=== PATIENT | female | born 1990 | race Caucasian/White ===

== ENCOUNTER 2017-02-26 05:55 | Emergency (ER) | payer BC ==
[2017-02-26 06:22] VITALS: BMI 25.7
[2017-02-26 06:33] LABS: URINE APPEARANCE SLCLOUDY; URINE BILIRUBIN NEGATIVE (NEGATIVE); URINE BLOOD NEGATIVE (NEGATIVE); URINE COLOR YELLOW; URINE GLUCOSE (UA) NEGATIVE (NEGATIVE); URINE KETONE NEGATIVE (NEGATIVE); URINE NITRITE NEGATIVE (NEGATIVE); URINE PROTEIN NEGATIVE (NEGATIVE); URINE UROBILINOGEN NEGATIVE E.U./dl (0.2-1.0)
[2017-02-26 06:48] LABS: URINE LEUK ESTERASE 1+ (NEGATIVE)
[2017-02-26 06:50] LABS: URINE HYALINE CAST 2 /lpf; URINE MUCUS FEW; URINE RBC 1 /hpf (0-3); URINE WBC 3 /hpf (3-5)
--- NOTE | 2017-02-26 07:19 | PDOC ---
History of Present Illness - General Chief Complaint: Pain Stated Complaint: ABDOMINAL PAIN Time Seen by Provider: 02/26/17 07:07 History Source: Patient Exam Limitations: Language Barrier, Physical Impairment - History of Present Illness Travel History: No Initial Comments: 02/26/17 07:19 27 yo F A1 presents @ 18w gestation with 3 day history of lower abdominal pain. She describes constant 8/10 pressure -like lower abdominal pain that radiates to bilateral lower quadrants. No alleviating or aggravating factors. She states she has taken Tylenol with minimal relief. She mentions has not had a bowel movement for 4 days. She has appointment to see Dr. Gale OB on . but pain prompted trip to ED. Denies fever, chills, CP, GRAY, SOB, palpitations, N/V. Timing/Duration: reports: constant Quality: reports: moderate Abdominal Pain Onset Location: reports: generalized abdomen Pain Radiation: reports: RLQ, LLQ Activities at Onset: reports: none Treatment Prior to Arrive: improves with: analgesics Aggravating Factors: improves with: None Alleviating Factors: improves with: None Past History - Travel Traveled outside of the country in the last 30 days: No Close contact w/someone who was outside of country & ill: No - Past Medical History Allergies/Adverse Reactions: Allergies Allergy/AdvReac Type Severity Reaction Status Date / Time No Known Allergies Allergy Verified 02/26/17 06:23 Home Medications: Ambulatory Orders Clotrimazole [Clotrimazole-7] 45 gm VG DAILY #1 cream.appl 02/26/17 Pnv73/Iron,Gluc/Folic/Dss/Dha [Citranatal Assure Combo Pack] 1 each PO DAILY Other medical history: Pt denies - Reproductive History Is Patient Now?: Yes (18 wks) (#): 1 - Psycho/Social/Smoking Cessation Hx Suicidal Ideation: No Smoking History: Never smoked Have you smoked in the past 12 months: No Information on smoking cessation initiated: No Hx Alcohol Use: No Drug/Substance Use Hx: No Substance Use Type: None Review of Systems - Review of Systems Able to Perform ROS?: Yes Is the patient limited Green[place]ic proficient: No ABD/GI: Yes: Constipated, Vomiting : Yes: Frequency All Other Systems: Reviewed and Negative *Physical Exam - Vital Signs Last Vital Signs Temp Pulse Resp BP Pulse Ox 97.9 F 106 H 20 111/58 100 02/26/17 06:19 02/26/17 06:19 02/26/17 06:19 02/26/17 06:19 02/26/17 06:19 - Physical Exam General Appearance: Yes: Moderate Distress HEENT: positive: EOMI, GUILLE Neck: positive: Supple Respiratory/Chest: positive: Lungs Clear, Normal Breath Sounds. negative: Respiratory Distress, Accessory Muscle Use Cardiovascular: positive: Regular Rhythm, Regular Rate, S1, S2. negative: Edema , JVD, Murmur Female Pelvic Exam: positive: uterus (gravid). negative: discharge, vaginal bleeding Gastrointestinal/Abdominal: positive: Normal Bowel Sounds, Tender, Soft. negative: Guarding, Rebound Musculoskeletal: positive: Normal Inspection, CVA Tenderness Extremity: positive: Normal Capillary Refill, Normal Inspection, Normal Range of Motion Integumentary: positive: Normal Color, Dry, Warm. negative: Cyanotic, Erythema Neurologic: positive: line manager II-XII NML intact, Fully Oriented, Alert, Normal Mood/ Affect, Normal Response, Motor Strength / ED Treatment Course - LABORATORY CBC & Chemistry Diagram: 02/26/17 07:07 02/26/17 07:07 - ADDITIONAL ORDERS Additional order review: Laboratory Results 02/26/17 06:25 Urine Color Yellow Urine Appearance Slcloudy Urine pH 5.0 Ur Specific Abbott 1.026 Urine Protein Negative Urine Glucose (UA) Negative Urine Ketones Negative Urine Blood Negative Urine Nitrite Negative Urine Bilirubin Negative Urine Urobilinogen Negative Ur Leukocyte Esterase 1+ H Urine RBC 1 Urine WBC 3 Ur Epithelial Cells Moderate Hyaline Casts 2 Urine Mucus Few - RADIOLOGY Radiograph Interpretation: 02/26/17 09:24 EXAM#: TYPE/EXAM: RESULT: [id number] US/ LIMITED US HISTORY PROVIDED: evaluation. Real time examination of the pelvis demonstrates the following: There is a single live intrauterine with measurements corresponding to a gestational age of 18 weeks 6 days. A heart rate of 142 BPM was calculated. There is an anterior uterine mass consistent with a leiomyoma. This fibroid measures 5.6 x 5.3 x 3.8 cm. The placenta is posterior in location. An adequate amount of amniotic fluid is identified. The fetus is in a breech presentation at the present time. A cervical length of 3.8 cm was also measured. IMPRESSION: Single live intrauterine gestation of 18 weeks 6 days gestational age. Reported By: Power Babin MD 02/26/17 0908 Medical Decision Making - Medical Decision Making 02/26/17 07:52 A:27 yo F A1 presents @ 18w gestation with 3 day history of lower abdominal pain. P: * Will send to Quantitative BHcg, CBC, CMP, and UA. * Transabdominal US ordered. * Pelvic exam WNL 02/26/17 09:24 * Quantitative BHCG and US confirm IUP @ 18W6D. * CBC-shows Leukocytosis 02/26/17 11:57 * Contacted Dr Gale office. She was not available today and has no coverage. * Given patients pain well controlled and stable condition will discharge home with quick follow up in 2-3days * Given Clotrimazole cream for yeast infection and told to take tylenol for pain. *DC/Admit/Observation/Transfer Diagnosis at time of Disposition: Yeast infection - Discharge Dispostion Disposition: HOME Admit: No - Referrals Referrals: Kris Tinajero MD [Primary Care Provider] - Sara Gale MD [Staff Physician] - - Patient Instructions Printed Discharge Instructions: DI for Vaginal Yeast Infection Additional Instructions: Please follow up with OBGYN Dr. Gale. Take you medication for yeast infection as directed. Take Tylenol for pain. Regular diet. Increase activity as tolerated. If pain worsens or you develop fever/nausea/vomiting please return to ER. Print Language: [place] - Post Discharge Activity Work/School Note: Back to Work
--- NOTE | 2017-02-26 07:36 | PDOC ---
Attending Attestation - Resident Resident Name: Perez Sousa - ED Attending Attestation I have performed the following: I have examined & evaluated the patient, The case was reviewed & discussed with the resident, I agree w/resident's findings & plan, Exceptions are as noted - HPI HPI: 27 yo F history deafness currently 18 WGA with an uncomplicated presents with pelvic pain x3 days. She has not taken anything for pain. Pain is currently 9/10. She denies nausea, vomiting, vaginal discharge, bleeding, dysuria. She has had increased urinary frequency. She has had recent constipation for past few days. She is taking vitamins as prescribed. - Physicial Exam PE: GENERAL: Awake, alert, and fully oriented. No distress, but appears uncomfortable. HEAD: No signs of trauma EYES: PERRLA, EOMI, sclera anicteric, conjunctiva clear ENT: Auricles normal inspection, hearing grossly normal, nares patent, oropharynx clear without exudates. Moist mucosa NECK: Normal ROM, supple, no lymphadenopathy, JVD, or masses LUNGS: Breath sounds equal, clear to auscultation bilaterally. No wheezes, and no crackles HEART: Regular rate and rhythm, normal S1 and S2, no murmurs, rubs or gallops ABDOMEN: Soft, +suprapubic tenderness, normoactive bowel sounds. No guarding, no rebound. No masses EXTREMITIES: Normal range of motion, no edema. No clubbing or cyanosis. No cords, erythema, or tenderness NEUROLOGICAL: Cranial nerves II through XII grossly intact. Normal speech, normal gait SKIN: Warm, Dry, normal turgor, no rashes or lesions noted. : No external lesions. +Erythema and white discharge in the vault. No CMT, no adnexal tenderness. - Medical Decision Making Patient 18 WGA with pelvic pain. DDx includes UTI, round ligament pain, threatened miscarriage, yeast infection. Will give ofirmev for pain, obtain sono and UA.
[2017-02-26] MEDS ORDERED: ACETAMINOPHEN 1000 MG/100 ML VIAL (NON FORMULARY) IVPB ONE (07:44)
[2017-02-26 08:12] LABS: BASOPHIL 0.3 % (0-2.0); EOSINOPHIL 0.9 % (0-4.5); MCH 26.9 pg (25.7-33.7); MCHC 33.6 g/dl (32.0-36.0); MEAN PLT VOLUME 9.6 fl (7.5-11.1); NEUTROPHILS 84.2 % (42.8-82.8); PLATELET COUNT 192 K/MM3 (134-434); RDW 14.3 % (11.6-15.6); WHITE BLOOD COUNT 16.4 K/mm3 (4.0-10.0)
[2017-02-26] MEDS ORDERED: ACETAMINOPHEN INJECTION 100 ML IVPB ONE (08:12)
[2017-02-26 08:43] LABS: ALBUMIN 2.9 g/dl (3.4-5.0); ALK PHOS 86 U/L (45-117); ANION GAP 11 (8-16); BILIRUBIN,TOTAL 0.2 mg/dL (0.2-1.0); CALCIUM 9.1 mg/dL (8.5-10.1); CO2 24 mmol/L (21-32); CREATININE 0.5 mg/dL (0.55-1.02); GLUCOSE,RANDOM 77 mg/dL (74-106); SGOT/AST 20 U/L (15-37); SGPT/ALT 32 U/L (12-78)
[2017-02-26 12:05] VITALS: BP 106/68; PULSE 84; TEMP 98
== END 2017-02-26 12:17 | disposition home or self-care (01) ==
LOC: JER 05:55
PROC: 3E033NZ Introduction of Analgesics, Hypnotics, Sedatives into Peripheral Vein, Percutaneous Approach (ICD-10-PCS; principal; 2017-02-26)
DX: O98.812 Other maternal infectious and parasitic diseases complicating pregnancy, second trimester (principal); B37.3 Candidiasis of vulva and vagina; Z3A.18 18 weeks gestation of pregnancy
CPT/HCPCS: 36415; 76815-TC; 80053; 81003; 81015; 84702; 85025; 86850; 86900; 86901; 87086; 99284-25

== ENCOUNTER 2017-07-12 03:45 | Inpatient (IN) | payer BC ==
[2017-07-12] MEDS ORDERED: DEXTROSE 5%-LACTATED RINGERS 1,000 ML IV ONE (04:15)
[2017-07-12 05:30] LABS: BASOPHIL 0.6 % (0-2.0); EOSINOPHIL 0.6 % (0-4.5); MCH 26.5 pg (25.7-33.7); MCHC 32.9 g/dl (32.0-36.0); MEAN CELL VOLUME 80.6 fl (80-96); MEAN PLT VOLUME 11.5 fl (7.5-11.1); NEUTROPHILS 72.4 % (42.8-82.8); PLATELET COUNT 142 K/MM3 (134-434); RDW 14.6 % (11.6-15.6); WHITE BLOOD COUNT 14.5 K/mm3 (4.0-10.0)
[2017-07-12 05:31] VITALS: BMI 17.9
[2017-07-12 05:42] LABS: INR 0.96 (0.82-1.09); PROTHROMBIN TIME (PATIENT) 10.5 SEC (9.98-11.88)
[2017-07-12 05:44] LABS: ACTIVATED PTT 27.6 SECONDS (26.9-34.4)
[2017-07-12 06:08] LABS: HIV 1 & 2 AB NEGATIVE; HIV 1 AGp24 NEGATIVE
[2017-07-12 06:57] LABS: ALBUMIN 2.8 g/dl (3.4-5.0); ALK PHOS 211 U/L (45-117); ANION GAP 10 (8-16); BILIRUBIN,TOTAL 0.5 mg/dL (0.2-1.0); CALCIUM 8.9 mg/dL (8.5-10.1); CO2 22 mmol/L (21-32); CREATININE 0.8 mg/dL (0.55-1.02); GLUCOSE,RANDOM 73 mg/dL (74-106); SGOT/AST 27 U/L (15-37); SGPT/ALT 38 U/L (12-78); TOT PROT 6.6 g/dl (6.4-8.2)
[2017-07-12] MEDS ORDERED: DEXTROSE 5%-LACTATED RINGERS 1,000 ML IV SCH (08:04)
[2017-07-12] MEDS ORDERED: TUBERCULIN PPD 5 TU/0.1ML SYRINGE (IN PATIENT USE ONLY) ID ONE (09:00)
--- NOTE | 2017-07-12 09:17 | HP ---
Past Medical History - Admission Chief Complaint: Rupture of membrane History of Present Illness: 27 yo @ 38 weeks gestation, admitted for rupture of membrane. Patient states that she was sleeping and at 3 am her membrane ruptured. History Source: Patient Limitations to Obtaining History: No Limitations - Past Medical History ...: 2 ...Para: 0 ... Weeks Gestation by Dates: 38.4 ...EDC by Dates: 07/22/17 - Past Surgical History Past Surgical History: Yes: None Hx Myomectomy: No Hx Transabdominal Cerclage: No - Smoking History Smoking history: Never smoked Have you smoked in the past 12 months: No - Alcohol/Substance Use Hx Alcohol Use: No History of Substance Use: reports: None - Social History Usual Living Arrangement: Yes: With Significant Other History of Recent Travel: No Home Medications - Allergies Allergies/Adverse Reactions: Allergies Allergy/AdvReac Type Severity Reaction Status Date / Time No Known Allergies Allergy Verified 07/12/17 04:48 - Home Medications Home Medications: Ambulatory Orders Vit Calc,Iron,Folic [ Vitamins] 1 each PO DAILY 07/12/17 Family Disease History - Family Disease History Family History: Unremarkable Review of Systems - Review of Systems Constitutional: reports: No Symptoms Eyes: reports: No Symptoms HENT: reports: No Symptoms Neck: reports: No Symptoms Cardiovascular: reports: No Symptoms Respiratory: reports: No Symptoms Gastrointestinal: reports: No Symptoms Genitourinary: reports: Pain, Other (Leakage of fluid) Musculoskeletal: reports: No Symptoms Integumentary: reports: No Symptoms Neurological: reports: No Symptoms Endocrine: reports: No Symptoms Hematology/Lymphatic: reports: No Symptoms Psychiatric: reports: No Symptoms Pain Intensity: 6 Physical Exam - Maternity Vital Signs: Vital Signs Temperature 98.0 F 07/12/17 08:00 Pulse Rate 68 07/12/17 08:00 Respiratory Rate 20 07/12/17 08:00 Blood Pressure 112/63 07/12/17 08:00 O2 Sat by Pulse Oximetry (%) Constitutional: Yes: Well Nourished Eyes: Yes: Conjunctiva Clear HENT: Yes: WNL Neck: Yes: Supple Cardiovascular: Yes: Regular Rate and Rhythm Lungs: Clear to auscultation Breast(s): Yes: WNL - Abdominal Exam/OB Number of Fetuses: Single Presentation: Vertex - Vaginal Exam/OB Vaginal Bleediing: No Dilatation (cm): 4 Amniotic Membrane Status: Leaking Amniotic Fluid: Yes: Clear Presentation: Vertex/Position Station: -2 - Physical Exam Musculoskeletal: Yes: WNL Extremities: Yes: WNL Integumentary: Yes: WNL ...Motor Strength: WNL Psychiatric: Yes: Alert, Oriented - Labs Lab Results: CBC, BMP 07/12/17 04:39 07/12/17 04:50 Problem List - Problems (1) Spontaneous rupture of membranes Code(s): STC3793 - Assessment/Plan Spontaneous rupture of membrane Admit to L&D Analgesia as needed Anticipate
[2017-07-12] MEDS ORDERED: ELECTROLYTE-148 SOLN 1,000 ML IV SCH (10:00)
[2017-07-12] MEDS ORDERED: FENTANYL/BUPIVACAINE/NS/PF - PCEA - 50 ML DISP.SYRIN EP SCH ×2 (10:15→11:54)
[2017-07-12] MEDS ORDERED: OXYTOCIN 15 UNITS/ LR 250 ML 250 ML IVPB SCH ×2 (11:00→11:55)
[2017-07-12] MEDS ORDERED: METHYLERGONOVINE MALEATE 0.2 MG/1 ML AMP IM PRN (14:23)
[2017-07-12] MEDS ORDERED: BISACODYL 10 MG SUPP.RECT RC PRN (14:23)
[2017-07-12] MEDS ORDERED: WITCH HAZEL 50% (TUCKS) 40 PAD/JAR PAD TP PRN (14:23)
[2017-07-12] MEDS ORDERED: BENZOCAINE 20% 57 GM BOTTLE TP PRN (14:23)
[2017-07-12] MEDS ORDERED: BENZOCAINE 28 GM HEMORRHOIDAL OINTMENT TP PRN (14:23)
--- NOTE | 2017-07-12 14:23 | PN ---
Delivery - Delivery Vaginal Delivery: Spontaneous Type of Anesthesia: Epidural Episiotomy/Laceration: Midline EBL (cc): 250 Delivery, Single - Feeding Plan Initial Plan: Exclusive throughout hospitalization Remarks - Remarks Remarks: Normal spontaneous vaginal delivery of a live girl over midline episiotomy. Nose / Oropharynx suctioned @ perineum. Cord clamped and cut. Placenta expelled spontaneously intact. Midline episiotomy repaired with 2.0 Chromic.
--- NOTE | 2017-07-12 14:28 | DS ---
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 Vital Signs: Vital Signs Temperature 98.1 F 07/12/17 10:00 Pulse Rate 73 07/12/17 11:45 Respiratory Rate 18 07/12/17 11:45 Blood Pressure 112/56 07/12/17 11:45 O2 Sat by Pulse Oximetry (%) Constitutional: Yes: Well Nourished Eyes: Yes: Conjunctiva Clear HENT: Yes: Atraumatic Neck: Yes: Supple Cardiovascular: Yes: Regular Rate and Rhythm Respiratory: Yes: Regular Gastrointestinal: Yes: Normal Bowel Sounds ...Rectal Exam: Yes: WNL Vaginal Exam: Yes: Normal Cervix: Yes: Normal Uterus: Yes: Firm ....Post : Yes: Uterus firm, Moderate lochia serosa Breast(s): Yes: WNL Musculoskeletal: Yes: WNL Extremities: Yes: WNL Neurological: Yes: Alert, Oriented ...Motor Strength: WNL Psychiatric: Yes: Alert, Oriented Labs: CBC, BMP 07/12/17 04:39 07/12/17 04:50 Delivery - Delivery Vaginal Delivery: Spontaneous Type of Anesthesia: Epidural Episiotomy/Laceration: Midline EBL (cc): 250 Delivery, Single - 1 Minute Total Score: 9 5 Minutes Total Score: 9 - [place] Feeding Plan Initial Plan: Exclusive throughout hospitalization Discharge Summary Reason For Visit: ADMIT Current Active Problems Spontaneous rupture of membranes (Acute) Status post normal vaginal delivery (Acute) Procedures: Principal: Normal spontaneous vaginal delivery Hospital Course: Routine care Condition: Good - Instructions Diet, Activity, Other Instructions: Regular diet No douching, no sexual intercourse x 6 weeks F/U with MD in 6 weeks Referrals: Sara Gale MD [Staff Physician] - Disposition: HOME - Home Medications Comprehensive Discharge Medication List: Ambulatory Orders Vit Calc,Iron,Folic [ Vitamins] 1 each PO DAILY 07/12/17
[2017-07-12] MEDS ORDERED: D5W-LR W/ 20 UNITS OXYTOCIN 1,000 ML IV SCH (14:30)
[2017-07-12] MEDS: ACETAMINOPHEN 325 MG TABLET (FP) PO PRN ×2 (17:39→21:39)
[2017-07-12] MEDS: FERROUS SO4 325 MG TABLET (FP) PO SCH (17:39)
[2017-07-12] MEDS: IBUPROFEN 600 MG TABLET (FP) PO PRN ×2 (17:40→21:37)
[2017-07-13 07:48] LABS: BASOPHIL 0.3 % (0-2.0); EOSINOPHIL 0.3 % (0-4.5); MCH 26.1 pg (25.7-33.7); MCHC 32.4 g/dl (32.0-36.0); MEAN CELL VOLUME 80.4 fl (80-96); MEAN PLT VOLUME 10.6 fl (7.5-11.1); NEUTROPHILS 84.3 % (42.8-82.8); PLATELET COUNT 133 K/MM3 (134-434); RDW 14.7 % (11.6-15.6); WHITE BLOOD COUNT 19.2 K/mm3 (4.0-10.0)
[2017-07-13] MEDS: ACETAMINOPHEN 325 MG TABLET (FP) PO PRN ×2 (08:58→21:49)
[2017-07-13] MEDS: IBUPROFEN 600 MG TABLET (FP) PO PRN ×2 (09:00→21:51)
[2017-07-13] MEDS: FERROUS SO4 325 MG TABLET (FP) PO SCH ×3 (09:00→17:17)
[2017-07-13] MEDS: PRENATAL VITAMINS W/ FOLIC ACID TABLET (FP) PO SCH (09:01)
--- NOTE | 2017-07-13 12:47 | PN ---
Post Note - Post Date of Delivery: 07/12/17 Post Day: 1 Vital Signs: Vital Signs - 24 hr 07/12/17 07/12/17 07/12/17 14:15 14:30 14:45 Temperature Pulse Rate 91 H 84 78 Respiratory 20 20 20 Rate Blood Pressure 98/59 100/60 111/58 07/12/17 07/12/17 07/12/17 15:50 17:41 22:00 Temperature 98 F 98 F 98.4 F Pulse Rate 72 68 68 Respiratory 20 20 18 Rate Blood Pressure 103/53 103/58 103/52 07/13/17 07/13/17 07/13/17 02:00 06:00 07:50 Temperature 98 F 98 F 98.1 F Pulse Rate 70 64 72 Respiratory 18 18 20 Rate Blood Pressure 98/62 100/58 110/70 Labs: Laboratory Results - last 24 hr 07/12/17 07/13/17 04:39 07:24 WBC 19.2 H D RBC 4.26 Hgb 11.1 D Hct 34.3 MCV 80.4 MCH 26.1 MCHC 32.4 RDW 14.7 Plt Count 133 L MPV 10.6 Neutrophils % 84.3 H Lymphocytes % 8.9 D Monocytes % 6.2 Eosinophils % 0.3 Basophils % 0.3 Hep Bs Antigen Negative Rubella IgG Antibody 11.00 - Subjective Subjective: No Complaints - Objective Afebrile: No Breast: Not engorged Abdomen: Soft, Non-tender Uterus: Fundus firm Vagina: Scant lochia Extremities: Non-tender - Assessment/Plan (1) Status post normal vaginal delivery Assessment: S/P Normal Plan: Routine Care
[2017-07-13] MEDS ORDERED: SENNOSIDES/DOCUSATE COMBO (SENNA PLUS) TABLET (UD) PO PRN (22:00)
[2017-07-14] MEDS: IBUPROFEN 600 MG TABLET (FP) PO PRN ×2 (05:43→09:55)
[2017-07-14] MEDS: ACETAMINOPHEN 325 MG TABLET (FP) PO PRN ×2 (05:43→09:56)
[2017-07-14] MEDS: FERROUS SO4 325 MG TABLET (FP) PO SCH ×2 (09:00→12:16)
[2017-07-14] MEDS: PRENATAL VITAMINS W/ FOLIC ACID TABLET (FP) PO SCH (09:55)
[2017-07-14 11:38] VITALS: BP 104/68; PULSE 72; TEMP 97.8
== END 2017-07-14 12:15 | disposition home or self-care (01) | DRG 775 ==
LOC: JLDR 03:45 → J3W 15:50
PROVIDERS: ADMIT Obstetrics & Gynecology; ATTEND Obstetrics & Gynecology
PROC: 10E0XZZ Delivery of Products of Conception, External Approach (ICD-10-PCS; principal; 2017-07-12)
PROC: 0W8NXZZ Division of Female Perineum, External Approach (ICD-10-PCS; 2017-07-12)
DX: O80 Encounter for full-term uncomplicated delivery (principal); Z3A.38 38 weeks gestation of pregnancy; Z37.0 Single live birth
CPT/HCPCS: 36415; 59409; 80053; 85025; 85610; 85730; 86593; 86762; 86850; 86900; 86901; 87340; 87389